=== PATIENT | female | born 1960 | race Caucasian/White ===

== ENCOUNTER 2024-09-30 13:21 | Outpatient (CLI) | payer OTHER, SELFPAY ==
--- NOTE | ~2024-09-30 | MM_ITS ---
EXAMINATION: MM screening jennifer BI w benigno HISTORY: Screening TECHNIQUE: Craniocaudal and mediolateral oblique 3-D tomosynthesis images were obtained and synthetic 2-D images were generated. CAD analysis was submitted and interpreted. COMPARISON: No prior mammogram is available for comparison at this institution. BREAST PARENCHYMAL COMPOSITION: Not dense: There are scattered areas of fibroglandular density. FINDINGS: There is no evidence of suspicious mass, calcification, or architectural distortion to sugg est malignancy in either breast. There has been no suspicious interval change. IMPRESSION: 1. No mammographic evidence of malignancy. 2. Recommend routine screening mammography in one year. BI-RADS Category 1: Negative Reviewed, dictated and finalized at location B. AL PROGRAM MANAGER
== END 2024-09-30 13:22 | disposition home or self-care (01) ==
PROVIDERS: PCP Family Medicine; Visit Provider Family Medicine
DX: Z12.31 Encounter for screening mammogram for malignant neoplasm of breast (principal); N64.89 Other specified disorders of breast
CPT/HCPCS: 77063; 77067

== ENCOUNTER 2025-01-05 00:29 | Day surgery (SDC) | payer OTHER, SELFPAY ==
[2024-12-30 10:26] VITALS: BMI 20.8
--- OUTSIDE RECORDS SUMMARY | 2025-01-05 00:34 | XMS_ITS | Referral Summary ---
Author Organization [facility] Address [address] [place] [phone] Care Team Providers Care Lay Out Inspector Name Role Phone Devin Guzman Primary Care Provider [phone] Encounters Date Type Department Care Team Description 12/06/2024 Telephone [facility] Gastroenterology [address] [facility] 12th [place] [address] [place] [address] Cait Baker LPN GI Procedure/Motility 12/05/2024 Telephone [facility] Specialty Services [facility] [place] [address] Miscellaneous, Not In File 11/02/2024 2:15 PM CDT Office Visit [facility] Medical [facility] Obstetrical Gynecology [address] [place] [address] [place] [phone] Isacc Shannon MD Post-menopausal atrophic vaginitis (Primary Dx); Lichen simplex chronicus 11/01/2024 Telephone [facility] Obstetrical Gynecology [address] [place] [address] [place] [phone] Isacc Shannon MD from Last 3 Months Allergies No known active allergies Medications buPROPion XL (WELLBUTRIN XL) 300 mg 24 hr tablet 5 Active lamoTRIgine (LaMICtal) 100 mg tablet 5 Active levothyroxine (SYNTHROID) 50 mcg tablet 5 Active clobetasoL (TEMOVATE) 0.05 % cream Apply finger tip worth (1-2g) nightly to vulva three times per week 60 g 2 Active estradioL (ESTRACE) 0.01 % (0.1 mg/gram) vaginal creamIndication s:Atrophic Vaginitis associated with Menopause,Atrop hy of Vulva Apply fingertip worth (1-2g) nightly to vulva and vagina canal three times weekly 42.5 g 11 5 10/04/19 26 Active liothyronine (CYTOMEL) 5 mcg tablet Take 1 tablet (5 mcg total) by mouth daily Active prazosin (MINIPRESS) 1 mg capsule Take 1 capsule (1 mg total) by mouth daily Active traZODone (DESYREL) 150 mg tablet TAKE 1 TO 2 TABLETS BY MOUTH EVERY DAY AT BEDTIME Active Active Problems Problem Noted Date Diagnosed Date Vulvar atrophy 10/04/2024 Well woman exam with routine gynecological exam 10/04/2024 Post-menopausal atrophic vaginitis 10/04/2024 Lichen simplex chronicus 10/04/2024 Social History Tobacco Use Types Packs/Day Years Used Date Smoking Tobacco: Never Smokeless Tobacco: Never Tobacco Cessation:Counseling Given: Not Answered Comments No Sex and Gender Information Value Date Recorded Sex Assigned at Not on file 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 Gender Identity Not on file Sexual Orientation Not on file Last Filed Vital Signs Vital Sign Reading Time Taken Comments Blood Pressure 124/70 11/02/2024 2:31 PM CDT Pulse - - Temperature - - Respiratory Rate - - Oxygen Saturation - - Inhaled Oxygen Concentration - - Weight 56.2 kg (124 lb) 11/02/2024 2:31 PM CDT Height 154.9 cm (5' 1 ) 11/02/2024 2:31 PM CDT Body Mass Index 23.43 11/02/2024 2:31 PM CDT Plan of Treatment Not on file [place] [address] Care Teams Lay Out Inspector Relationship Specialty Start Date End Date Devin Guzman DO [address] [place] [id number] PCP - General Family Medicine 10/04/24
--- OUTSIDE RECORDS SUMMARY | 2025-01-05 00:35 | XMS_ITS | Clinical Summary ---
Author Organization [facility] Address [facility] [place] [address] Care Team Providers Care Autism Teacher Name Role Phone Devin Guzman Primary Care Provider [phone]- [phone] Allergies No known active allergies Medications buPROPion XL (WELLBUTRIN XL) 300 mg 24 hr tablet 5 Active lamoTRIgine (LaMICtal) 100 mg tablet 5 Active levothyroxine (SYNTHROID) 50 mcg tablet 5 Active clobetasoL (TEMOVATE) 0.05 % cream Apply finger tip worth (1-2g) nightly to vulva three times per week 60 g 2 5 Active estradioL (ESTRACE) 0.01 % (0.1 mg/gram) [...] atrophic vaginitis 10/04/2024 Lichen simplex chronicus 10/04/2024 Encounters Date Type Department Care Team Description 12/06/2024 Telephone [facility] Gastroenterology [address] [facility] 12th [place] [address] [place] [address] Cait Baker LPN GI Procedure/Motility 12/05/2024 Telephone [facility] Specialty Services [address] [place] [address] Miscellaneous, Not In File 11/02/2024 2:15 PM CDT Office Visit [facility] Obstetrical Gynecology [address] [facility] [address] [place] [address] Isacc Shannon MD Post-menopausal atrophic vaginitis (Primary Dx); Lichen simplex chronicus 11/01/2024 Telephone [facility] Obstetrical Gynecology [facility] [facility] [address] [place] [address] Isacc Shannon MD from Last 3 Months Surgical History Surgery Date Site/Laterality Comments SECTION LITHOTRIPSY GASTRIC BYPASS CHOLECYSTECTOMY Medical History Medical History Date Comments Miguel's disease Bipolar 1 disorder (HCC) Family History Medical History Relation Name Comments Breast cancer Neg Hx Colon cancer Neg Hx Ovarian cancer Neg Hx Social History Tobacco Use Types Packs/Day Years Used Date Smoking Tobacco: Never Smokeless Tobacco: Never Tobacco Cessation:Counseling Given: Not Answered Comments No Sex and Gender Information Value Date Recorded Sex Assigned at Not on file 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 Gender Identity Not on file Sexual Orientation Not on file Obstetrics History Para Term AB IAB SAB Ectopic Multiple Livin g Live Births 1 1 1 1 1 Date Outcome GA Total Labor Labor/2nd/3rd Weight Sex Type Anes PTL Teagan A1 A5 Name Clin Term Last Filed Vital Signs Vital Sign Reading [...] 11/02/2024 2:31 PM CDT Plan of Treatment Health Maintenance Due Date Last Done Comments Cervical Cancer Screening 1960 Colon Cancer Screening-Colonoscopy 1960 Depression Screening 1960 Fall Risk Assessment 1960 Hepatitis C Screening 1960 Osteoporosis Screening-Bone Density Scan 1960 DTaP/Tdap/Td Vaccine (1 - Tdap) 1970 Hepatitis B Screening 1977 Zoster Vaccine (2 of 3) 07/12/2021 05/17/2021 Breast Cancer Screening-Mammogram 08/07/2023 022, 07/02/2021 Well Visit 65+ 2024 Influenza Vaccine Completed 06/11/2024, 05/17/2021 Pneumococcal vaccine 65+ Completed 06/11/2024 Insurance [employer] PPO Care Teams Autism Teacher Relationship Specialty Start Date End Date Devin Guzman DO [address] [place] [id number] PCP - General Family Medicine 10/04/24
--- NOTE | 2025-01-05 08:27 | WPDANESEPPF ---
Anes - Initial Pre Proc Eval Procedure: Operation Date: 01/05/25 09:30 Proposed Procedures p Esophagogastroduodenoscopy - Prieto Newberry MD Date/Time: 01/05/25 08:27 Surgeon: Prieto Newberry MD Pre Op Diagnosis: Nausea, Bariatric surgery status Patient Data Age: 64 Gender: F Height: 1.55 m Weight: 50 kg Allergies Allergy/AdvReac Type Severity Reaction Status Date / Time No Known Allergies Allergy Verified 01/05/25 08:28 Home Medications ?Medication ?Instructions ?Recorded ?Confirmed ?Type bupropion HCl 300 mg 24 hr tablet, 300 mg PO DAILY #90 tabs 08/31/24 01/04/25 Rx extended release lamotrigine 100 mg tablet 100 mg PO DAILY #90 tabs 08/31/24 01/04/25 Rx levothyroxine 50 mcg tablet 50 mcg PO DAILY #90 tabs 08/31/24 01/04/25 Rx liothyronine 5 mcg tablet 5 mcg PO DAILY #90 tabs 11/28/24 01/04/25 Rx ondansetron 4 mg disintegrating 4 mg PO Q6H PRN nausea and 12/14/24 01/04/25 Rx tablet vomiting #30 tabs Patient hx anesthesia problems: none Family hx anesthesia problems: none Results Review: All pre-operative results and documents have been reviewed as part of the pre-operative evaluation. [facility] Past Medical History Medical History (Updated 01/04/25 @ 07:50 by Devin Guzman DO) Carpal tunnel syndrome on both sides Insomnia Generalized anxiety disorder Bipolar disorder Miguel thyroiditis Surgical History Surgical History H/O gastric bypass 2009 History of cholecystectomy 2005 H/O section 1977 Social History Social History Smoking status: Former smoker Tobacco type: cigarettes Substance use type: marijuana Other substance usage details: THC to help with nausea Last use: daily Living arrangements: with family Anes - Eval Final PreProcedure Day of Procedure 01/05/25 08:27 Patient weight: normal Heart: regular rate and rhythm Lungs: clear to auscultation and normal air movement Airway: Mallampati scale class II Neurological: alert and oriented Last oral intake: >/= 8 hours ASA classification: III Emergent: no Anesthetic plan: proceed Anesthesia type and monitoring: general GIVS and standard monitoring Results Review: All pre-operative results and documents have been reviewed as part of the pre-operative evaluation. Informed Consent: The patient's anesthetic plan and its attendant risks and benefits were discussed with the patient/family/POA. Questions were solicited and answers provided to the satisfaction of the patient/family/POA.
[2025-01-05 08:29] VITALS: BP 118/70; PULSE 61; RESP 18; TEMP 36.1; O2SAT 100
[2025-01-05] MEDS: LACTATED RINGERS 1,000 ML 150 ML IV CONT (08:40)
--- NOTE | 2025-01-05 08:50 | WPDHPUPDATE1 ---
History and Physical Update Update Date/Time: 01/05/25 08:50 History and Physical has been reviewed, including an updated exam of the patient. There are NO changes in the patient's condition. Risks, benefits, and alternatives have been discussed and questions answered. Patient agrees to proceed with procedure.
[2025-01-05 09:00] VITALS: BP 101/73; PULSE 61; RESP 19; O2SAT 99
[2025-01-05 09:10] VITALS: BP 111/61; PULSE 61; RESP 16; O2SAT 100
[2025-01-05 09:20] VITALS: BP 126/67; PULSE 58; RESP 20; O2SAT 100
== END 2025-01-05 09:40 | disposition home or self-care (01) ==
PROVIDERS: PCP Family Medicine; Referring Provider Nurse Practitioner; Visit Provider Internal Medicine Gastroenterology
PROC: 0DJ08ZZ Inspection of Upper Intestinal Tract, Via Natural or Artificial Opening Endoscopic (ICD-10-PCS; CPT 43239; principal; 2025-01-05 09:30)
DX: K29.50 Unspecified chronic gastritis without bleeding (principal); K21.9 Gastro-esophageal reflux disease without esophagitis; G47.00 Insomnia, unspecified; F41.9 Anxiety disorder, unspecified; F31.9 Bipolar disorder, unspecified; E06.3 Autoimmune thyroiditis; G56.03 Carpal tunnel syndrome, bilateral upper limbs; Z98.890 Other specified postprocedural states; Z98.84 Bariatric surgery status; Z90.49 Acquired absence of other specified parts of digestive tract; Z87.891 Personal history of nicotine dependence
CPT/HCPCS: 43239; 88305; J2003; J2704; J7120

== ENCOUNTER 2025-02-27 15:08 | Outpatient (CLI) | payer OTHER, SELFPAY ==
--- NOTE | ~2025-02-27 | DEXA_ITS ---
Bone Density Report Name: PHAN ROSENTHAL Age: 64 Sex: Female Ethnicity: White Date of : 1960 Indication: postmenopausal; screening for osteoporosis; Referring Provider: BEE MARTIN Study: Bone densitometry was performed. Exam Date: February 27, 2025 Accession number: [id number] Bone Density: Region BMD T-score Z-score Classification AP Spine(L1-L4) 1.005 -0.4 1.4 Normal Femoral Neck (Left) 0.628 -2.0 -0.4 Osteopenia Total Hip (Left) 0.716 -1.9 -0.6 Osteopenia Femoral Neck (Right) 0.657 -1.7 -0.2 Osteopenia Total Hip (Right) 0.727 -1.8 -0.5 Osteopenia Total Hip Mean 0.721 -1.9 -0.6 Osteopenia World Health Organization criteria for BMD impression classify patients as: Normal (T-score at or above -1.0), Osteopenia (T-score between -1.0 and -2.5), or Osteoporosis (T-score at or below -2.5). 10-year Fracture Risk(1): Major Osteoporotic Fracture 9.9% Hip Fracture 1.5% Reported Risk Factors: [place] (), Neck BMD=0.628, BMI=22.2 (1) FRAX(R) Version 3.08. Fracture probability calculated for an untreated patient. Fracture probability may be lower if the patient has received treatment. Clinical Information Provided by Patient: Has used the following medications: HRT (i.e. estrogen/hormone therapy) Patient maximum height was 62 Menopause Age: 49 No regular weight bearing exercise Onset of menses at age 11 Number of children 1 Impression: The patient has low bone mass, based on the Left Femoral Neck T-score. The patient has an estimated ten-year risk of hip fracture of 1.5% and an estimated ten-year risk of major fracture of 9.9%, based on the WHO FRAX algorithm. Discussion: BONE DENSITY IS LOW AT ONE OR MORE SKELETAL SITES. This patient's lowest T-score is low at one or more skeletal sites. It meets the World Health Organization's (WHO) criteria for ?low bone mass? (T-score between -1.0 and -2.5). The patient's 10-year risk of fracture as calculated by FRAX is less than the threshold where pharmacological therapy is recommended by the National Osteoporosis Foundation (NOF). However, all treatment decisions require clinical judgment and consideration of individual patient factors, including patient preferences, comorbidities, previous drug use, risk factors not captured in the FRAX model (e.g., frailty, falls, vitamin D deficiency, increased bone turnover, interval significant decline in bone density) and possible under or overestimation of fracture risk by FRAX. The patient should follow a healthful lifestyle (good nutrition with adequate calcium and vitamin D, and appropriate weight-bearing exercise). Follow-Up: Consider repeating this study in 2 to 3 years to reassess this patient's status, or sooner if there is some new clinical indication. Reported by: ITZ on 02/27/2025 3:30:00 PM. Reviewed, dictated and finalized at location A.
== END 2025-02-27 15:09 | disposition home or self-care (01) ==
LOC: MICIMG 15:13
PROVIDERS: PCP Family Medicine; Visit Provider Family Medicine
DX: M85.89 Other specified disorders of bone density and structure, multiple sites (principal); Z78.0 Asymptomatic menopausal state
CPT/HCPCS: 77080

== ENCOUNTER 2025-05-11 05:47 | Day surgery (SDC) | payer OTHER, SELFPAY ==
[2025-04-28 09:52] VITALS: BMI 23.3
[2025-05-11 06:16] VITALS: BP 118/61; PULSE 62; RESP 15; TEMP 36.6; O2SAT 99
[2025-05-11] MEDS: ACETAMINOPHEN 500 MG TABLET 1000 MG PO (06:18)
--- NOTE | 2025-05-11 06:51 | PM.HPGS ---
History of Present Illness History of Present Illness Chief complaint: Right Carpal Tunnel Syndrome Narrative: Patient seen and examined in pre-operative holding area. No interval change in medical history or symptoms. Patient recalls previous discussion of benefits and alternatives to procedure. Continues to desire to proceed with right endoscopic possible open carpal tunnel release . Reviewed procedure, post-op expectations and risks including but not limited to bleeding, infection, injury to tendon/nerve/vessel, decreased hand function, stiffness, RSD, no change or worsening of symptoms. I discussed the possible use of assistants and their participation in the case. Patient stated understanding and signed the consent form wishing to proceed. Review of Systems Review of Systems: All systems reviewed & are unremarkable except as noted in HPI and below PMFSH Past Medical History Medical History (Updated 04/24/25 @ 15:21 by Devin Guzman DO) Carpal tunnel syndrome on both sides Insomnia Generalized anxiety disorder Bipolar disorder Miguel thyroiditis Surgical History Surgical History H/O gastric bypass 2009 History of cholecystectomy 2005 H/O section 1977 Social History Social History Smoking status: Former smoker Tobacco type: cigarettes Substance use type: marijuana Other substance usage details: THC to help with nausea Last use: daily Living arrangements: with family Meds Home Medications and Allergies Home Medications ?Medication ?Instructions ?Recorded ?Confirmed ?Type bupropion HCl 300 mg 24 hr tablet, 300 mg PO DAILY #90 tabs 02/20/25 05/11/25 Rx extended release lamotrigine 100 mg tablet 100 mg PO DAILY #90 tabs 02/20/25 05/11/25 Rx levothyroxine 50 mcg tablet 50 mcg PO DAILY #90 tabs 02/20/25 05/11/25 Rx liothyronine 5 mcg tablet 5 mcg PO DAILY #90 tabs 02/20/25 05/11/25 Rx hydrocodone 5 mg-acetaminophen 325 1 tablet PO Q6H PRN pain #8 tabs 05/11/25 Rx mg tablet Allergies Allergy/AdvReac Type Severity Reaction Status Date / Time No Known Allergies Allergy Verified 05/11/25 06:15 Vital Signs Vital Signs - 24 hr 05/11/25 06:16 Temperature 36.6 C Pulse Rate 62 Respiratory Rate 15 Blood Pressure 118/61 Pulse Oximetry 99 Oxygen Delivery Room Air Exam Narrative: unchanged Assessment and Plan Assessment and plan (1) Carpal tunnel syndrome on both sides: Code(s): G56.03 - Carpal tunnel syndrome, bilateral upper limbs Status: Acute Assessment and Plan: cont as above
--- NOTE | 2025-05-11 06:52 | W.PM.PROC2 ---
Procedure Note - Detailed Date of Procedure 05/11/25 Pre-op Diagnosis Right Carpal Tunnel Syndrome Post-op Diagnosis Same Procedure Performed right ectr Surgeon Danielle Ibarra MD Drawer Upfitter maximino colin pa-c Anesthesia MAC Description of Procedure INFORMED CONSENT: The patient was seen and examined and marked in the pre-op area.? The patient signed the consent form. PROCEDURE IN DETAIL:The patient taken back to OR on the stretcher in supine position. Time out performed with anesthesia, surgeon and staff agreeing on patient's name site and surgery to be performed SCDs were placed on the lower extremities and inflated. A tourniquet was placed on {right} upper extremity and antibiotics given IV After anesthesia administered sedation I injected {5}cc 1%lido with epi and 0.5% marcaine plain at the operative site The?{right upper extremity}?was prepped and draped in sterile fashion the??{right upper extremity} was? exsanguinated with Esmarch bandage and tourniquet inflated to 250mmHg I made a transverse incision in the {right} volar distal wrist crease through skin and dermis with 15 blade scalpel.? Littler scissors spread down to antebrachial fascia. A small incision was made in antebrachial fascia allowing access to Carpal tunnel. I proceeded with sequential dilation staying in line with the ring finger and hugging the hook of the hamate.? I then used the synovial elevator to free any adhesions from the underside of the transverse carpal ligament. Next I was able to insert the Microaire endoscopic carpal tunnel device with direct visualization of the transverse fibers on the monitor and proceeded with complete segmental retrograde release of the ligament in its entirety.? I irrigated with normal saline and closed with 4-0 monocryl for dermis and subcuticular closure. A dressing of Dermabond, 4x4, raymundo, and a volar splint was applied for patient safety, security, and comfort and secured with an brett bandage after the tourniquet was let down noting the hand was warm and well perfused. The patient was then awaken from anesthesia and transferred to the recovery room in stable condition.? Complications - none EBL- 0cc Disposition - home in stable condition Maximino Colin PA-C was essential for positioning, retraction, closure and dressing placement [facility] Billing Surgery - Charge Forward: Surgery Billing ([id number] for maximino)
--- NOTE | 2025-05-11 07:11 | WPDANESEPPF ---
Anes - Initial Pre Proc Eval Procedure: Operation Date: 05/11/25 07:30 Proposed Procedures p Right Endoscopic Carpal Tunnel Release, Possible Open Carpal Tunnel - Danielle Ibarra MD Date/Time: 05/11/25 07:11 Surgeon: Danielle Ibarra MD Pre Op Diagnosis: Right Carpal Tunnel Syndrome Patient Data Age: 64 Gender: F Height: 1.55 m Weight: 55 kg Last Vital Signs Temp 98 F 05/11/25 06:16 Pulse 62 05/11/25 06:16 Resp 15 05/11/25 06:16 BP 118/61 05/11/25 06:16 Pulse Ox 99 05/11/25 06:16 O2 Del Method Room Air 05/11/25 06:16 Allergies Allergy/AdvReac Type Severity Reaction Status Date / Time No Known Allergies Allergy Verified 05/11/25 06:15 Home Medications ?Medication ?Instructions ?Recorded ?Confirmed ?Type bupropion HCl 300 mg 24 hr tablet, 300 mg PO DAILY #90 tabs 02/20/25 05/11/25 Rx extended release lamotrigine 100 mg tablet 100 mg PO DAILY #90 tabs 02/20/25 05/11/25 Rx levothyroxine 50 mcg tablet 50 mcg PO DAILY #90 tabs 02/20/25 05/11/25 Rx liothyronine 5 mcg tablet 5 mcg PO DAILY #90 tabs 02/20/25 05/11/25 Rx hydrocodone 5 mg-acetaminophen 325 1 tablet PO Q6H PRN pain #8 tabs 05/11/25 Rx mg tablet Patient hx anesthesia problems: none Family hx anesthesia problems: none Results Review: All pre-operative results and documents have been reviewed as part of the pre-operative evaluation. [facility] Past Medical History Medical History (Updated 04/24/25 @ 15:21 by Devin Guzman DO) Carpal tunnel syndrome on both sides Insomnia Generalized anxiety disorder Bipolar disorder Miguel thyroiditis Surgical History Surgical History H/O gastric bypass 2009 History of cholecystectomy 2005 H/O section 1977 Social History Social History Smoking status: Former smoker Tobacco type: cigarettes Substance use type: marijuana Other substance usage details: THC to help with nausea Last use: daily Living arrangements: with family Baltazar Corbett Final PreProcedure Day of Procedure 05/11/25 07:11 Heart: regular rate and rhythm Lungs: clear to auscultation Airway: Mallampati scale class II Neurological: alert and oriented Last oral intake: >/= 8 hours ASA classification: II Anesthetic plan: proceed Anesthesia type and monitoring: monitored anesthesia care Results Review: All pre-operative results and documents have been reviewed as part of the pre-operative evaluation. Informed Consent: The patient's anesthetic plan and its attendant risks and benefits were discussed with the patient/family/POA. Questions were solicited and answers provided to the satisfaction of the patient/family/POA.
[2025-05-11] MEDS: LACTATED RINGERS 1,000 ML 30 ML IV CONT (07:13)
[2025-05-11] MEDS: ceFAZolin SODIUM 2 GM/20 ML SW SYRINGE IV PUSH (07:24)
[2025-05-11 07:44] VITALS: BP 96/53; PULSE 54; RESP 12; O2SAT 99
[2025-05-11 07:59] VITALS: BP 106/56; PULSE 51; RESP 14; O2SAT 100
[2025-05-11 08:15] VITALS: BP 110/62; PULSE 57; RESP 16; O2SAT 100
[2025-05-11] MEDS: BUPivacaine HCL 0.5% 10 ML AMP INFILTRATE (08:15)
[2025-05-11] MEDS: LIDO 1%/EPINEPHRINE 1:100,000 20 ML VIAL 10 ML INFILTRATE (08:15)
== END 2025-05-11 08:30 | disposition home or self-care (01) ==
LOC: ASC 06:06
PROVIDERS: PCP Family Medicine; Visit Provider Plastic Surgery
PROC: 01N54ZZ Release Median Nerve, Percutaneous Endoscopic Approach (ICD-10-PCS; CPT 29848; principal; 2025-05-11 07:30)
DX: G56.01 Carpal tunnel syndrome, right upper limb (principal)
CPT/HCPCS: 29848

== ENCOUNTER 2025-08-03 07:12 | Day surgery (SDC) | payer OTHER, SELFPAY ==
[2025-07-20 12:52] VITALS: BMI 22.4
--- NOTE | 2025-08-03 06:55 | P.OP_ITS ---
Procedure Note - Detailed Date of Procedure 08/03/25 Pre-op Diagnosis Left Carpal Tunnel Syndrome Post-op Diagnosis Same Procedure Performed left ectr Surgeon Danielle Ibarra MD Communications Representative maximino colin pa-c Anesthesia MAC Description of Procedure INFORMED CONSENT: The patient was seen and examined and marked in the pre-op area.? The patient signed the consent form. PROCEDURE IN DETAIL:The patient taken back to OR on the stretcher in supine position. Time out performed with anesthesia, surgeon and staff agreeing on patient's name site and surgery to be performed SCDs were placed on the lower extremities and inflated. A tourniquet was placed on {left} upper extremity and antibiotics given IV After anesthesia administered sedation I injected {4}cc 1%lido with epi and 0.5% marcaine plain at the operative site The?{left upper extremity}?was prepped and draped in sterile fashion the??{left upper extremity} was? exsanguinated with Esmarch bandage and tourniquet inflated to 250mmHg I made a transverse incision in the {left} volar distal wrist crease through skin and dermis with 15 blade scalpel.? Littler scissors spread down to antebrachial fascia. A small incision was made in antebrachial fascia allowing access to Carpal tunnel. I proceeded with sequential dilation staying in line with the ring finger and hugging the hook of the hamate.? I then used the synovial elevator to free any adhesions from the underside of the transverse carpal ligament. Next I was able to insert the Microaire endoscopic carpal tunnel device with direct visualization of the transverse fibers on the monitor and proceeded with complete segmental retrograde release of the ligament in its entirety.? I irrigated with normal saline and closed with 4-0 monocryl for dermis and subcuticular closure. A dressing of Dermabond, 4x4, raymundo, and a volar splint was applied for patient safety, security, and comfort and secured with an brett bandage after the tourniquet was let down noting the hand was warm and well perfused. The patient was then awaken from anesthesia and transferred to the recovery room in stable condition.? Complications - none EBL- 0cc Disposition - home in stable condition Maximino Colin PA-C was essential for positioning, retraction, closure and dressing placement. [facility] Billing Surgery - Charge Forward: Surgery Billing ([id number] for maximino)
--- NOTE | 2025-08-03 06:55 | PM.HPGS ---
History of Present Illness History of Present Illness Chief complaint: Left Carpal Tunnel Syndrome Narrative: Patient seen and examined in pre-operative holding area. No interval change in medical history or symptoms. Patient recalls previous discussion of benefits and alternatives to procedure. Continues to desire to proceed with left endoscopic possible open carpal tunnel release. Reviewed procedure, post-op expectations and risks including but not limited to bleeding, infection, injury to tendon/nerve/vessel, decreased hand function, stiffness, RSD, no change or worsening of symptoms. I discussed the possible use of assistants and their participation in the case. Patient stated understanding and signed the consent form wishing to proceed. Review of Systems Review of Systems: All systems reviewed & are unremarkable except as noted in HPI and below PMFSH Past Medical History Medical History (Updated 07/06/25 @ 14:15 by Clementina Reyes, RANDY) Rotator cuff tear Rotator cuff (capsule) sprain Left shoulder pain Carpal tunnel syndrome on both sides Insomnia Generalized anxiety disorder Bipolar disorder Miguel thyroiditis Surgical History Surgical History H/O gastric bypass 2009 History of cholecystectomy 2005 H/O section 1977 Social History Social History Social History: Caffeine-none Smoking status: Former smoker Tobacco type: cigarettes Second hand tobacco smoke exposure: Yes Alcohol intake: never Substance use type: marijuana Other substance usage details: daily Last use: daily Living arrangements: with family Spiritual care concerns: No Meds Home Medications and Allergies Home Medications ?Medication ?Instructions ?Recorded ?Confirmed ?Type bupropion HCl 300 mg 24 hr tablet, 300 mg PO DAILY #90 tabs 02/20/25 08/03/25 Rx extended release lamotrigine 100 mg tablet 100 mg PO DAILY #90 tabs 02/20/25 08/03/25 Rx levothyroxine 50 mcg tablet 50 mcg PO DAILY #90 tabs 02/20/25 08/03/25 Rx liothyronine 5 mcg tablet 5 mcg PO DAILY #90 tabs 02/20/25 08/03/25 Rx hydrocodone 5 mg-acetaminophen 325 1 tablet PO Q4H PRN pain #10 tabs 06/29/25 07/20/25 Rx mg tablet Allergies Allergy/AdvReac Type Severity Reaction Status Date / Time No Known Allergies Allergy Verified 08/03/25 08:06 Exam Narrative: unchanged Assessment and Plan Assessment and plan (1) Carpal tunnel syndrome on both sides: Code(s): G56.03 - Carpal tunnel syndrome, bilateral upper limbs Status: Acute Assessment and Plan: cont as above
[2025-08-03 08:18] VITALS: BP 100/78; PULSE 64; RESP 18; TEMP 36.7; O2SAT 100
[2025-08-03] MEDS: ACETAMINOPHEN 500 MG TABLET 1000 MG PO (08:19)
--- NOTE | 2025-08-03 08:56 | WPDANESEPPF ---
Anes - Initial Pre Proc Eval Procedure: Operation Date: 08/03/25 09:15 Proposed Procedures p Left Endoscopic Carpal Tunnel Release, Possible Open Carpal Tunnel Release - Danielle Ibarra MD Date/Time: 08/03/25 08:56 Surgeon: Danielle Ibarra MD Pre Op Diagnosis: Left Carpal Tunnel Syndrome Patient Data Age: 65 Gender: F Height: 1.55 m Weight: 55.8 kg Last Vital Signs Temp 98.0 F 08/03/25 08:18 Pulse 64 08/03/25 08:18 Resp 18 08/03/25 08:18 BP 100/78 08/03/25 08:18 Pulse Ox 100 08/03/25 08:18 O2 Del Method Room Air 08/03/25 08:18 Allergies Allergy/AdvReac Type Severity Reaction Status Date / Time No Known Allergies Allergy Verified 08/03/25 08:06 Home Medications ?Medication ?Instructions ?Recorded ?Confirmed ?Type bupropion HCl 300 mg 24 hr tablet, 300 mg PO DAILY #90 tabs 02/20/25 08/03/25 Rx extended release lamotrigine 100 mg tablet 100 mg PO DAILY #90 tabs 02/20/25 08/03/25 Rx levothyroxine 50 mcg tablet 50 mcg PO DAILY #90 tabs 02/20/25 08/03/25 Rx liothyronine 5 mcg tablet 5 mcg PO DAILY #90 tabs 02/20/25 08/03/25 Rx hydrocodone 5 mg-acetaminophen 325 1 tablet PO Q4H PRN pain #10 tabs 06/29/25 07/20/25 Rx mg tablet Patient hx anesthesia problems: none Family hx anesthesia problems: none Results Review: All pre-operative results and documents have been reviewed as part of the pre-operative evaluation. [facility] Past Medical History Medical History (Updated 07/06/25 @ 14:15 by Clementina Reyes, RANDY) Rotator cuff tear Rotator cuff (capsule) sprain Left shoulder pain Carpal tunnel syndrome on both sides Insomnia Generalized anxiety disorder Bipolar disorder Miguel thyroiditis Surgical History Surgical History H/O gastric bypass 2009 History of cholecystectomy 2005 H/O section 1977 Social History Social History (Reviewed 07/06/25 @ 14:07 by Juliane Ewing Social History: Caffeine-none Smoking status: Former smoker Tobacco type: cigarettes Second hand tobacco smoke exposure: Yes Alcohol intake: never Substance use type: marijuana Other substance usage details: daily Last use: daily Living arrangements: with family Spiritual care concerns: No Anes - Eval Final PreProcedure Day of Procedure 08/03/25 08:56 Heart: regular rate and rhythm Lungs: clear to auscultation Airway: Mallampati scale class 1 Neurological: alert and oriented Last oral intake: >/= 8 hours ASA classification: II Anesthetic plan: proceed Anesthesia type and monitoring: general Results Review: All pre-operative results and documents have been reviewed as part of the pre-operative evaluation. Informed Consent: The patient's anesthetic plan and its attendant risks and benefits were discussed with the patient/family/POA. Questions were solicited and answers provided to the satisfaction of the patient/family/POA.
[2025-08-03] MEDS: ceFAZolin SODIUM 2 GM/20 ML SW SYRINGE IV PUSH (09:14)
[2025-08-03] MEDS: BUPivacaine HCL 0.5% 10 ML AMP (09:28)
[2025-08-03] MEDS: LIDO 1%/EPINEPHRINE 1:100,000 20 ML VIAL (09:28)
[2025-08-03 09:33] VITALS: BP 103/64; PULSE 53; RESP 15; O2SAT 99
[2025-08-03] MEDS: LACTATED RINGERS 1,000 ML 30 ML IV CONT (09:33)
[2025-08-03 09:50] VITALS: BP 115/59; PULSE 58; RESP 16; O2SAT 98
[2025-08-03 10:20] VITALS: BP 106/65; PULSE 60; RESP 16; O2SAT 98
== END 2025-08-03 10:34 | disposition home or self-care (01) ==
LOC: ASC 07:49
PROVIDERS: PCP Family Medicine; Visit Provider Plastic Surgery
PROC: 01N54ZZ Release Median Nerve, Percutaneous Endoscopic Approach (ICD-10-PCS; CPT 29848; principal; 2025-08-03 09:15)
DX: G56.02 Carpal tunnel syndrome, left upper limb (principal)
CPT/HCPCS: 29848